=== PATIENT | male | born 1990 | race Caucasian/White ===

== ENCOUNTER → 2016-06-04 | Outpatient (CLI) | payer OTHER ==
--- NOTE | 2016-06-04 10:10 | DIREP ---
PROCEDURE:CHEST 2 VIEWS COMPARISON:None. INDICATIONS:ARTHRITIS FINDINGS: LUNGS/PLEURA:No significant pulmonary parenchymal abnormalities. No effusions. VASCULATURE:Normal. Unremarkable pulmonary vasculature. CARDIAC:Normal. No cardiac silhouette abnormality or cardiomegaly. MEDIASTINUM:Normal. No visible mass or adenopathy. BONES:Normal. No fracture or visible bony lesion. OTHER:Negative. CONCLUSION: 1. Negative chest radiographs. Dictated by: Tyrone Moody M.D. on 06/04/2016 at 09:08 AM
== END | disposition home or self-care (01) ==
LOC: RAD 09:46
PROVIDERS: ATTEND Nurse Practitioner Family
DX: M19.90 Unspecified osteoarthritis, unspecified site (principal)
CPT/HCPCS: 71020

== ENCOUNTER → 2016-07-04 | Outpatient (CLI) | payer OTHER ==
--- NOTE | 2016-07-04 11:56 | DIREP ---
PROCEDURE:XRAY SPINE LUMBAR 2-3 VWS COMPARISON:None. INDICATIONS:LUMBAGO TECHNIQUE:AP, lateral, and coned down lateral views of the lumbar spine are provided. FINDINGS: ALIGNMENT:Normal. VERTEBRAE:Normal. DISK SPACES:Normal. SPONDYLOLISTHESIS:None. SACROILIAC JOINTS:Normal. OTHER:Normal. CONCLUSION:Normal examination. Dictated by: Mode Arango M.D. on 07/04/2016 at 11:55 AM
--- NOTE | 2016-07-04 11:58 | DIREP ---
PROCEDURE:XR SPINE CERVICAL COMP W/ OBLIQUES COMPARISON:None. INDICATIONS:CERVICALGIA TECHNIQUE:AP, lateral, bilateral oblique, and dens views of the cervical spine are provided. FINDINGS: ALIGNMENT:Normal. VERTEBRAE:Normal. DISK SPACES:Normal. CERVICAL RIBS:None. OTHER:Normal. CONCLUSION:Normal examination. Dictated by: Mode Arango M.D. on 07/04/2016 at 11:56 AM
== END | disposition home or self-care (01) ==
LOC: RAD 10:28
PROVIDERS: ATTEND Nurse Practitioner Family
DX: M54.5 Low back pain (principal); M54.2 Cervicalgia
CPT/HCPCS: 72050; 72100